=== PATIENT | female | born 1985 | race Caucasian/White ===

== ENCOUNTER 2025-01-23 11:34 | Outpatient (CLI) | payer BC, SELFPAY ==
--- NOTE | ~2025-01-23 | US_ITS ---
EXAMINATION: US pelvic complete w TV INDICATION: Acute vaginitis, pelvic and perineal pain TECHNIQUE: Multiple transabdominal and transvaginal sonographic images of the pelvis were obtained. COMPARISON: None. FINDINGS: Uterus: The uterus appears normal in size, shape, and position. The endometrium appears normal, with a thickness of 4 mm. Right Ovary: The right ovary appears normal. Vascular flow is present. Left Ovary: The left ovary is not seen sonographically. There is no significant degree of free fluid in the pelvis. IMPRESSION: Normal pelvic ultrasound with nonvisualization of the left ovary. Reviewed, dictated and finalized at location [facility]
== END 2025-01-23 11:35 | disposition home or self-care (01) ==
LOC: MICIMG 11:35
DX: N76.0 Acute vaginitis (principal); R10.20 Pelvic and perineal pain unspecified side
CPT/HCPCS: 76830; 76856